=== PATIENT | female | born 1995 | race Caucasian/White ===

== ENCOUNTER 2022-06-02 10:57 | Emergency (ER) | payer OTHER ==
[~2022-06-02] VITALS: Ht 154.9 cm; Wt 81.7 kg
[~2022-06-02 10:57] MED LIST: CONEST.3; DOCU100 PO; DOXY100 PO; FAMO20 PO; HYDACE5; HYDACE5 PO; LEVSOD50 PO; LORA.5 PO; LYBREL; ONDA4 PO; OXYACE5T PO; RXOXYACE PO; RXPROM25S PR; TRAM50; [UNRECOGNIZED DRUG - OTHER]
[2022-06-02] MEDS ORDERED: Robaxin750 MG PO (14:23)
== END 2022-06-02 14:41 | disposition home or self-care (01) ==
LOC: ER 10:57
DX: S16.1XXA Strain of muscle, fascia and tendon at neck level, initial encounter (principal); S46.912A Strain of unspecified muscle, fascia and tendon at shoulder and upper arm level, left arm, initial encounter; V89.2XXA Person injured in unspecified motor-vehicle accident, traffic, initial encounter; Z88.5 Allergy status to narcotic agent
CPT/HCPCS: 70450; 72125; 73030; 73080; 73110; A9270; J1885

== ENCOUNTER 2023-01-18 10:02 | Emergency (ER) | payer OTHER ==
[~2023-01-18] VITALS: Ht 154.9 cm; Wt 81.7 kg
[~2023-01-18 10:02] MED LIST changes: +Robaxin750 MG PO
[2023-01-18] MEDS ORDERED: Percocet 5-3251 EACH PO (12:04)
[2023-01-18] MEDS ORDERED: IBUP800 PO (12:04)
== END 2023-01-18 12:45 | disposition home or self-care (01) ==
LOC: ER 10:02
DX: S82.852A Displaced trimalleolar fracture of left lower leg, initial encounter for closed fracture (principal); X50.1XXA Overexertion from prolonged static or awkward postures, initial encounter; E03.9 Hypothyroidism, unspecified
CPT/HCPCS: 29515; 73610; 99283-25; A9270